=== PATIENT | female | born 1960 | race Caucasian/White ===

== ENCOUNTER 2017-01-25 08:39 | Emergency (ER) | payer OTHER ==
[2017-01-25 09:13] LABS: URINE MUCUS NONE SEEN (Up to 25%); URINE RBC NONE SEEN (0-5/hpf)
[2017-01-25 09:16] LABS: BASOPHILS 0.3 % (0.0-2.0); LYMPHOCYTES# 1.1 X 10^3uL (0.8-3.8)
[2017-01-25 09:23] LABS: EOSINOPHILS 0.3 % (0.0-6.0); LYMPHOCYTES 9.2 % (20.0-40.0); MEAN CELL VOLUME 84.4 fL (80.0-100.0); MEAN CORPUS. HGB CONCENTRATION 33.3 g/dL (32.0-36.0); MEAN CORPUSCULAR HEMOGLOBIN 28.1 pg (29.0-35.0); MEAN PLATELET VOLUME 9.6 fL (7.4-10.4); MONOCYTES 4.3 % (2.0-10.0); MONOCYTES# 0.5 X 10^3uL (0.2-1.0); NEUTROPHILS# 10.6 X 10^3uL (2.6-6.7); PLATELET COUNT 292 X 10^3uL (130-440); RED BLOOD COUNT 4.62 X 10^6uL (4.20-6.10); RED CELL DISTRIBUTION WIDTH 13.8 % (11.5-14.5); WHITE BLOOD COUNT 12.2 X 10^3uL (3.9-10.7)
[2017-01-25 09:24] LABS: URINE APPEARANCE CLEAR; URINE COLOR YELLOW
[2017-01-25 09:28] LABS: ALBUMIN 4.3 g/dL (3.5-5.0); ALKALINE PHOSPHATASE 64 U/L (38-126); ALT 39 U/L (9-52); AST 29 U/L (14-36); BILIRUBIN, DIRECT 0.3 mg/dL (0.0-0.4); BILIRUBIN, TOTAL 0.5 mg/dL (0.2-1.3); BLOOD UREA NITROGEN 12 mg/dL (7-17); CALCIUM 9.2 mg/dL (8.4-10.2); CHLORIDE 106 mmol/L (98-107); EST GLOMERULAR FILTRATION RATE 49 mL/min; GLUCOSE 140 mg/dL (70-100); LIPASE 828 U/L (23-300); POTASSIUM 3.6 mmol/L (3.5-5.1); SODIUM 143 mmol/L (137-145); TOTAL PROTEIN 7.9 g/dL (6.3-8.2)
[2017-01-25] MEDS ORDERED: ONDANSETRON HCL 4 MG/2 ML VIAL ONE (09:28)
[2017-01-25 09:29] LABS: ETHYL ALCOHOL < 10 mg/dL (<10); SALICYLATE < 1.0 mg/dL (<20.0); URINE BACTERIA <10 ORGANISMS/hpf (<10/hpf); URINE BILIRUBIN 0.5 mg/100ml (1+) (NEGATIVE); URINE BLOOD NEGATIVE (NEGATIVE); URINE GLUCOSE NORMAL (NEGATIVE); URINE KETONE 5mg/dL (NEGATIVE); URINE LEUKOCYTE ESTERASE NEGATIVE (NEGATIVE); URINE NITRITE NEGATIVE (NEGATIVE); URINE PH 5.5 (5-7); URINE PROTEIN 10mg/dL (trace) (NEG - TRACE); URINE SPECIFIC GRAVITY 1.025 (0.001-1.035); URINE SQUAMOUS EPITHELIAL CELL 0-5/hpf (<= 15/hpf); URINE UROBILINOGEN 0.2mg/dL (Normal) (NEG-1mg/dL); URINE WBC 0-4/hpf (0-4/hpf)
[2017-01-25 09:39] LABS: NEUTROPHILS 85.9 % (54.0-75.0)
--- NOTE | 2017-01-25 11:37 | ER NURSING DOCUMENTATION ---
Nurse's Notes [facility] Name:Parul Thomas Age:56 yrs Sex:Female :1960 Arrival Date:01/25/2017 Time:08:39 Bed4 Private MD: Diagnosis:Suicide Attempt Presentation: 01/25 08:51 Presenting complaint: Patient states: suicide attempt with Vicodin and Tylenol. cb Transition of care: Other Hotel?. 08:51 Method Of Arrival: Private Vehicle cb 08:51 Acuity: STEVEN 2 cb 10:14 Activity prior to arrival: patient drove car to [place] on [address] near [facility] on [address] and spent night in car taking Vicodin 5/325 mg #20 and taking Ibuprofen 800 mg #16 thinking it was additional Tylenol. Triage Assessment: 08:45 General: Appears ill, well groomed, Behavior is cooperative, flat. cb 08:45 Pain: Denies pain. EENT: No deficits noted. Neuro: Level of Consciousness is awake, cb alert, Oriented to person, place, time, event. Cardiovascular: Rhythm is regular. Respiratory: Airway is patent Trachea midline Respiratory effort is even, unlabored, Respiratory pattern is regular, symmetrical, Breath sounds are clear bilaterally. GI: Dry heaves other upon arrival Reports normal bowel habits, tolerance of fluids, tolerance of food, yesterday. : Denies burning with urination. Derm: pale appearing. Musculoskeletal: Denies. Historical: - Allergies: No known drug Allergies; - Home Meds: 1. lisinopril 5 mg oral tab 1 tab once daily 2. carbidopa-levodopa 25-250 mg oral tab 1 tab nightly for Restless Legs Syndrome 3. fluoxetine 20 mg oral tab 3 tabs once daily 4. metoprolol tartrate 50 mg oral tab 1 tab once daily for Acute Coronary Syndrome 5. atorvastatin 40 mg oral tab 1 tab once daily 6. aspirin 81 mg oral tab 1 tab once daily 7. hydrocodone-acetaminophen 5-325 mg oral tab 1 tab every 6 hours as needed for pain 8. ibuprofen 800 mg oral tab 1 tab 4 times per day with food - PMHx: CAD; angioplasty ; DEPRESSION; restless leg syndrome; hyperlipidemia ; HYPERTENSION; past suicide attempt ; - PSHx: Hysterectomy; - Tetanus: unknown. - Immunization history: Pneumococcal vaccine status is unknown. - Ebola Screening: : Patient negative for fever greater than or equal to 101.5 degrees Fahrenheit, and additional compatible Ebola Virus Disease symptoms. Patient denies exposure to infectious person. Patient denies travel to an Ebola-affected area in the 21 days before illness onset. No symptoms or risks identified at this time. . - Social history: Smoking status: Patient states former smoker of tobacco. Screenin:53 Infectious Disease Risk None. Abuse screen: Denies threats or abuse. Denies injuries cb from another. Nutritional screening: No deficits noted. Suicide Risk Assessment: Suicidal Thinking Present - Yes ( 2 points), Past Attempts - Yes (1 point), Family History of Suicide - Yes (1 point), Credible Suicide Plan - Yes (3 points), Means to Kill Self Available - Yes (3 points), Has Serious Health Problem - Yes (1 point), Lives Alone - No (0 points), Will Contract for Safety - Yes (0 points). Vital Signs: 08:51 BP 138 / 92 RA Sitting (auto/reg); Pulse 79 MON; Resp 20 S; Temp 97.6(T); Pulse Ox 95% cb on R/A; Weight 77.11 kg; Height 5 ft. 7 in. (170.18 cm); Pain 0/10; 09:22 BP 112 / 72 (auto/); cb 09:25 Pulse 57 MON; Resp 15; Pulse Ox 91% ; cb 09:30 BP 112 / 65 (auto/); cb 09:35 Pulse 56 MON; Resp 21; Pulse Ox 90% ; cb 10:00 BP 120 / 72 (auto/); cb 10:05 Pulse 61 MON; Resp 20; Pulse Ox 99% ; cb 10:30 BP 120 / 77 (auto/); cb 10:35 Pulse 60 MON; Resp 18; Pulse Ox 99% ; cb 11:00 BP 116 / 71 (auto/); cb 11:05 Pulse 62 MON; Resp 16; Pulse Ox 99% ; cb 11:18 BP 116 / 71; Pulse 55; Resp 22; Pulse Ox 99% on R/A; cb 08:51 Body Mass Index 26.63 (77.11 kg, 170.18 cm) cb 08:51 Normal Sinus Rhythm cb ED Course: 08:41 Patient arrived in ED. dp 08:51 Shawnee Dick, MIL is Primary Nurse. cb 08:53 Triage completed. cb 09:00 Inserted peripheral IV: 18 gauge in left antecubital area and blood collected. cb 09:00 Labs drawn. (by ED staff). Sent per order to lab. cb 09:00 Valuables Remains with patient Patient has correct armband on for positive cb identification. Placed in gown. Bed in low position. Call light in reach. Side rails up X2. quality assurance monitor on. Pulse ox on. NIBP on. 09:00 Family accompanied patient. cb 09:09 Toney Hernandez MD is Attending Physician. tl1 09:59 EKG done. (by ED staff). Reviewed by Toney Hernandez MD. cb 10:10 Diet: Patient given water. Tolerated well. cb 11:39 EKG attached cb Administered Medications: 09:14 Drug: NS 0.9% 1000 ml; Route: IV; Rate: bolus; Site: left antecubital; cb 10:30 Follow up: IV Status: Completed infusion; IV Intake: 1000ml cb 09:15 Drug: Zofran 4 mg; Route: IVP; Infused Over: 2 mins; Site: left antecubital; cb 11:37 Follow up: Response: Nausea is decreased cb Intake: 10:30 IV: 1000ml; Total: 1000ml. cb Outcome: 10:49 Transferred: Patient will be transferred to: [facility] in [facility] Facility Acceptance Time: January 25, 2017 at 10:45 Patient's face sheet was faxed to accepting facility. Face Sheet included patient's name, address, age, gender, contact information and insurance information. Patient will be transported by: Private Vehicle. Nurse and Physician Charting and Notes were sent to Accepting Facility. All tests and/or procedures with results, if applicable, were sent to accepting facility. 10:49 Condition: stable 10:49 Discharge Assessment: Patient awake, alert and oriented x 3. No cognitive and/or functional deficits noted. Patient verbalized understanding of disposition instructions. 10:49 Discharge instructions given to patient, family, Instructed on discharge instructions, Demonstrated understanding of instructions. 10:49 Discharge instructions given to 10:49 Discharge instructions given to 11:18 Report given to MIL BROWN @ [facility] ED cb 11:36 ER care complete, transfer ordered by . cb 11:36 Patient left the ED. cb Signatures: Shawnee Dick RN RN cb Toney Hernandez MD MD tl1 Parul Flores dp
--- NOTE | 2017-01-25 11:37 | ER PHYSICIAN DOCUMENTATION ---
Physician Documentation [facility] Name:Parul Thomas Age:56 yrs Sex:Female :1960 Arrival Date:01/25/2017 Time:08:39 Bed4 Private MD: Toney Jackson Disposition: 01/25 10:59 Chart complete. tl1 Disposition: 01/25/17 11:36 Transfer ordered to Other Acute Care Facility. Diagnosis is Suicide Attempt. - Reason for transfer: Specialty. - Accepting physician is Dr Soto. - Condition is Good. - Problem is new. COBRA Form completed? Yes Transfer - Mode of Transportation Private Vehicle HPI: 09:00 This 56 yrs old Female presents to ER via Private Vehicle with complaints of tl1 Overdose. 09:00 She has a h/o depression, with a suicide attempt about a year ago, for which she was tl1 hospitalized at [facility]. She became despondent yesterday related to job/home situation and drove from [place] up to [place] with the intent to overdose on vicodin 5/325, and ibuprofen, 800 mg tabs. She took less than 20 vicodin and an unknown amount of Ibuprofen 800 mg tabs between about 2100 and 2130 last night. She denied any other ingestion. Last night, she left her son a message that she was going to kill her self, and he drove up here from [place], looking all night for her, until he was able to connect with her at the [employer] latter-day this morning, and after finding her, he drove her here right away.. She denies any other ingestion. Apart from being depressed and fatigued, she has no other complaints.. Historical: - Allergies: No known drug Allergies; - Home Meds: 1. lisinopril 5 mg oral tab 1 tab once daily 2. carbidopa-levodopa 25-250 mg oral tab 1 tab nightly for Restless Legs Syndrome 3. fluoxetine 20 mg oral tab 3 tabs once daily 4. metoprolol tartrate 50 mg oral tab 1 tab once daily for Acute Coronary Syndrome 5. atorvastatin 40 mg oral tab 1 tab once daily 6. aspirin 81 mg oral tab 1 tab once daily 7. hydrocodone-acetaminophen 5-325 mg oral tab 1 tab every 6 hours as needed for pain 8. ibuprofen 800 mg oral tab 1 tab 4 times per day with food - PMHx: CAD; angioplasty ; DEPRESSION; restless leg syndrome; hyperlipidemia ; HYPERTENSION; past suicide attempt ; - PSHx: Hysterectomy; - Tetanus: unknown. - Immunization history: Pneumococcal vaccine status is unknown. - Ebola Screening: : Patient negative for fever greater than or equal to 101.5 degrees Fahrenheit, and additional compatible Ebola Virus Disease symptoms. Patient denies exposure to infectious person. Patient denies travel to an Ebola-affected area in the 21 days before illness onset. No symptoms or risks identified at this time. . - Social history: Smoking status: Patient states former smoker of tobacco. ROS: 09:42 Constitutional: Positive for fatigue, malaise. tl1 09:42 Cardiovascular: Negative for chest pain, edema, orthopnea, palpitations. 09:42 Respiratory: Negative for cough, hemoptysis, shortness of breath, sputum production, wheezing. 09:42 Abdomen/GI: Negative for abdominal pain, nausea, vomiting, hematemesis, black/tarry stool, rectal bleeding. 09:42 Neuro: Negative for altered mental status, dizziness, numbness, tingling, weakness. Exam: 09:48 Constitutional: This is a well developed, well nourished patient who is awake, alert, tl1 and in no acute distress. Head/Face: Normocephalic, atraumatic. Eyes: Pupils equal round and reactive to light, extra-ocular motions intact. Lids and lashes normal. Conjunctiva and sclera are non-icteric and not injected. Cornea within normal limits. Periorbital areas with no swelling, redness, or edema. ENT: Nares patent. No nasal discharge, no septal abnormalities noted. Tympanic membranes are normal and external auditory canals are clear. Oropharynx with no redness, swelling, or masses, exudates, or evidence of obstruction, uvula midline. Mucous membranes moist. Neck: Trachea midline, no thyromegaly or masses palpated, and no cervical lymphadenopathy. Supple, full range of motion without nuchal rigidity, or vertebral point tenderness. No Meningismus. Cardiovascular: Regular rate and rhythm with a normal S1 and S2. No gallops, murmurs, or rubs. Normal PMI, no JVD. No pulse deficits. Respiratory: Lungs have equal breath sounds bilaterally, clear to auscultation and percussion. No rales, rhonchi or wheezes noted. No increased work of breathing, no retractions or nasal flaring. 09:48 Abdomen/GI: Soft, non-tender, with normal bowel sounds. No distension or tympany. No tl1 guarding or rebound. No evidence of tenderness throughout. 09:48 Back: CVA tenderness, is absent. 09:48 Musculoskeletal/extremity: Exam is negative for acute changes. 09:48 Neuro: Orientation: is normal, Mentation: is normal, Memory: is normal, Cranial nerves: grossly normal, Motor: moves all fours. 09:48 Psych: Behavior/mood is pleasant, cooperative, suicidal, depressed, Affect is flat, Oriented to person, place, time, Patient having thoughts of suicide. Judgement / Insight is normal. Memory is normal. Delusions/hallucinations are not present. Vital Signs: 08:51 BP 138 / 92 RA Sitting (auto/reg); Pulse 79 MON; Resp 20 S; Temp 97.6(T); Pulse Ox 95% cb on R/A; Weight 77.11 kg; Height 5 ft. 7 in. (170.18 cm); Pain 0/10; 09:22 BP 112 / 72 (auto/); cb 09:25 Pulse 57 MON; Resp 15; Pulse Ox 91% ; cb 09:30 BP 112 / 65 (auto/); cb 09:35 Pulse 56 MON; Resp 21; Pulse Ox 90% ; cb 10:00 BP 120 / 72 (auto/); cb 10:05 Pulse 61 MON; Resp 20; Pulse Ox 99% ; cb 10:30 BP 120 / 77 (auto/); cb 10:35 Pulse 60 MON; Resp 18; Pulse Ox 99% ; cb 11:00 BP 116 / 71 (auto/); cb 11:05 Pulse 62 MON; Resp 16; Pulse Ox 99% ; cb 11:18 BP 116 / 71; Pulse 55; Resp 22; Pulse Ox 99% on R/A; cb 08:51 Body Mass Index 26.63 (77.11 kg, 170.18 cm) cb 08:51 Normal Sinus Rhythm cb MDM: 09:09 Patient medically screened. tl1 09:50 Differential diagnosis: Ingestion/exposure to tylenol, opioids. Data reviewed: vital tl1 signs, nurses notes, and as a result, I will discharge patient. Test interpretation: by ED physician or midlevel provider: ECG. Counseling: I had a detailed discussion with the patient and/or guardian regarding: the historical points, exam findings, and any diagnostic results supporting the discharge/admit diagnosis, lab results, the need for further work-up and treatment in the hospital. Response to treatment: the patient's symptoms have mildly improved after treatment, and as a result, I will admit patient. ED course: She was emotionally and hemodynamically stable. She is calm and cooperative, understands the need for hospitalization and is willing to be transported by her son Fletcher, an EMT/collection card clerk.. 09:59 Other consultation: [facility], Dr Valentine. ED course: . tl1 10:15 ECG:. tl1 11:39 EKG attached 01/25 09:30 Order name: BASIC METABOLIC PANEL; Complete Time: 10:14 EDMS 01/25 09:55 Interpretation: Normal Except: GLUCOSE 140; CREATININE 1.2. tl1 01/25 09:30 Order name: HEPATIC PANEL; Complete Time: 10:14 EDMS 01/25 09:55 Interpretation: Normal. tl1 01/25 09:30 Order name: LIPASE; Complete Time: 10:14 EDMS 01/25 09:55 Interpretation: Abnormal: LIPASE 828. tl1 01/25 09:30 Order name: SALICYLATE; Complete Time: 10:14 EDMS 01/25 09:56 Interpretation: Normal. tl1 01/25 09:30 Order name: ETHYL ALCOHOL; Complete Time: 10:14 EDMS 01/25 09:56 Interpretation: Normal: ETHYL ALCOHOL < 10. tl1 01/25 09:30 Order name: ACETAMINOPHEN; Complete Time: 10:14 EDMS 01/25 09:56 Interpretation: Normal. tl1 01/25 09:30 Order name: UA W/ MICRO -CULTURE IF IND; Complete Time: 10:14 EDMS 01/25 09:56 Interpretation: Normal Except: URINE KETONE 5mg/dL; URINE BILIRUBIN 0.5 mg/100ml (1+). tl1 01/25 09:30 Order name: URINE DRUG SCREEN, QUAL; Complete Time: 10:14 EDMS 01/25 09:57 Interpretation: Abnormal: BENZODIAZEPINES PRESUMPTIVE POS; OPIATE PRESUMPTIVE POS. 1 01/25 09:40 Order name: CBC AUTO DIF, MDIF/RMOR IF IND; Complete Time: 10:14 EDMS 01/25 09:57 Interpretation: WHITE BLOOD COUNT 12.2; HEMOGLOBIN 13.0; HEMATOCRIT 39.0; NEUTROPHILS tl1 85.9. 01/25 10:15 Order name: THYROID STIMULATING HORMONE; Complete Time: 20:24 EDMS 01/26 20:24 Interpretation: Normal: THYROID STIMULATING HORMONE 1.78. tl1 01/25 09:07 Order name: Continuous Cardiac Monitoring; Complete Time: 09:08 cb 01/25 09:07 Order name: I & O; Complete Time: 09: cb 01/25 09:07 Order name: Iv Saline Lock; Complete Time: 09: cb 01/25 09:07 Order name: NPO; Complete Time: 09: cb 01/25 09:07 Order name: Pulse Ox Continuous; Complete Time: : cb 01/25 09:07 Order name: Suicide Precautions; Complete Time: 09: cb 01/25 10:00 Order name: 12-lead EKG; Complete Time: 11:38 lp EC:59 Rate is 59 beats/min. Rhythm is regular, Normal Sinus Rhythm. QRS [place] is Normal. [place] tl1 interval is normal at 159 msec. QRS interval is normal at 89 msec. QT interval is normal at 433 msec. No Q waves. T waves are Normal. No ST changes noted. Clinical impression: Normal ECG. Interpreted by me. Reviewed by me. Dispensed Medications: 09:14 Drug: NS 0.9% 1000 ml; Route: IV; Rate: bolus; Site: left antecubital; cb 10:30 Follow up: IV Status: Completed infusion; IV Intake: 1000ml cb 09:15 Drug: Zofran 4 mg; Route: IVP; Infused Over: 2 mins; Site: left antecubital; cb 11:37 Follow up: Response: Nausea is decreased cb Signatures: Shawnee Dick RN RN cb Pavlish, Lena, RN RN lp Leigh, Tom, MD MD tl1
== END 2017-01-25 11:37 | disposition short-term general hospital (02) ==
LOC: EEVIPCON 08:39 → ER 08:39
DX: F99 Mental disorder, not otherwise specified (principal); T40.2X2A Poisoning by other opioids, intentional self-harm, initial encounter; T39.1X2A Poisoning by 4-Aminophenol derivatives, intentional self-harm, initial encounter; T39.312A Poisoning by propionic acid derivatives, intentional self-harm, initial encounter; R53.83 Other fatigue; R53.81 Other malaise; F32.9 Major depressive disorder, single episode, unspecified; I25.10 Atherosclerotic heart disease of native coronary artery without angina pectoris; I10 Essential (primary) hypertension; Z95.5 Presence of coronary angioplasty implant and graft; Z79.82 Long term (current) use of aspirin; Z79.899 Other long term (current) drug therapy
CPT/HCPCS: 80048; 80076; 80305; 80307; 80320; 80329; 81001; 83690; 84443; 85025; 93005; 96361; 96374; 99285; J2405